=== PATIENT | female | born 1960 | race Caucasian/White ===

== ENCOUNTER → 2018-05-20 | Outpatient (CLI) | payer BC ==
--- NOTE | 2018-05-21 14:47 | MM ---
Reason for exam: additional evaluation requested from prior study. Last mammogram was performed 1 year and 1 month ago. History: Patient is postmenopausal. Family history of breast cancer in sister at age 40 and breast cancer in paternal aunt. Benign excisional biopsy of the right breast, 1989. Physical Findings: Nurse did not find any significant physical abnormalities on exam. MG 3D Diag Mammo W/Cad OSKAR Bilateral CC and MLO view(s) were taken. Prior study comparison: April 10, 2017, mammogram. March 29, 2016, mammogram. March 23, 2015, mammogram. The breast tissue is heterogeneously dense. This may lower the sensitivity of mammography. Regional punctate calcifications right breast. No significant new findings when compared with previous films. These results were verbally communicated with the patient and result sheet given to the patient on 05/20/18. ASSESSMENT: Incomplete: need additional imaging evaluation, BI-RAD 0 RECOMMENDATION: Ultrasound of the left breast.
--- NOTE | 2018-05-21 14:49 | USB ---
Reason for exam: additional evaluation requested from abnormal screening. History: Patient is postmenopausal. Family history of breast cancer in sister at age 40 and breast cancer in paternal aunt. Benign excisional biopsy of the right breast, 1989. US Breast LT Left complete breast ultrasound includes all four quadrants, the retroareolar region and axilla. Finding demonstrates a 0.9 x 0.3 x 0.9cm oval, cystic cluster at 3 o'clock, unchanged from previous. This is unchanged from 01/31/17. Compatible with a benign etiology. Patient's annual exam can be done in a diagnostic clinic. These results were verbally communicated with the patient and result sheet given to the patient on 05/20/18. ASSESSMENT: Probably benign, BI-RAD 3 RECOMMENDATION: Follow-up diagnostic mammogram of both breasts in 1 year.
== END | disposition home or self-care (01) ==
LOC: RADMAMWWP 09:11
PROVIDERS: ATTEND Family Medicine
DX: N63.20 Unspecified lump in the left breast, unspecified quadrant (principal); R92.8 Other abnormal and inconclusive findings on diagnostic imaging of breast
CPT/HCPCS: 77062; 77066

== ENCOUNTER → 2023-11-28 | Outpatient (CLI) | payer BC ==
[2023-11-28 13:34] VITALS: BP 108/71; PULSE 112; RESP 16; TEMP 98.1
--- NOTE | 2023-11-28 13:52 | P.GSHP ---
History of Present Illness H&P Date: 11/28/23 Chief Complaint: breast pain Maribeth is a 63 year old female seen in consultation for Jeannine Small regarding breast pain. She had a bilateral mammogram on 08-14-23 which was read as BIRAD 2. She had a bilateral breast ultrasound on the same date which showed a probably benign heterogenous lesion which was hypoechoic at the 3 OClock position of the left breast for which 6 month follow up was recommended. In September her left nipple was itching, it was also tender. She had a follow up mammogram and ultrasound Nov 07, 2023. This revealed a stable complicated cyst at 3:00 left breast no significant interval change, and a stable mammogram. This was felt to be probably benign and short interval follow-up in 6 months was recommended of the ultrasound for stability of the left breast cyst. The breast pain has resolved. The pain was in the lateral aspect of her breast. It does not spread any place. She has no nipple discharge. She is not complaining of any lumps. masses, or nodules. She has no recent trauma of infection in her breast. 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 She had a left breast biopsy many years ago. Caffeine: none nicotine: none chocolate: weekly BCP: none hormones: none Family History: sister: breast cancer, at 40 genetic test (-) was taking hormones to get paternal aunt: breast cancer mother: lung cancer, skin cancer not melanoma father: lung cancer paternal 1st cousin: breast cancer Hormonal History: menarche: 13 breast fed: yes, first born at 25 menopause: 56 Surgical History: appy right knee left hip; cord decompression scheduled for hip replacement next week on the left skin cancer on her nose Medical History: high cholesterol arthritis Social History: nicotine: none alcohol: none drugs: none - Constitutional Constitutional: Denies chills, Denies fever - EENT Eyes: denies blurred vision, denies pain Ears: deny: decreased hearing, tinnitus Ears, nose, mouth and throat: Denies headache, Denies sore throat - Breasts Breasts: bilateral: as per HPI - Cardiovascular Cardiovascular: Denies chest pain, Denies shortness of breath - Respiratory Respiratory: Denies cough, Denies 7 - Gastrointestinal Gastrointestinal: Denies abdominal pain, Denies diarrhea, Denies nausea, Denies vomiting - Genitourinary (Female) Genitourinary: Denies dysuria, Denies hematuria - Menstruation Menstruation: Reports postmenopausal - Musculoskeletal Musculoskeletal: Reports as per HPI - Integumentary Comment: rosacea Integumentary: Reports as per HPI, Denies pruritus, Denies rash - Neurological Neurological: Denies numbness, Denies weakness - Psychiatric Psychiatric: Reports anxiety - Endocrine Endocrine: Denies fatigue, Denies weight change - Hematologic/Lymphatic Comment: none - Allergic/Immunologic Allergic/Immunologic: Reports as per HPI, Reports seasonal allergies Past Medical History Past Medical History: Hyperlipidemia Additional Past Medical History / Comment(s): Rosacea, Skin Cancer History of Any Multi-Drug Resistant Organisms: None Reported Past Surgical History: Appendectomy, Joint Replacement Additional Past Surgical History / Comment(s): Left hip core decompression, Breast Biopsy (right) Past Psychological History: No Psychological Hx Reported Smoking Status: Never smoker Medications and Allergies Home Medications Medication Instructions Recorded Confirmed Type Ascorbic Acid [Vitamin C] 500 mg PO DAILY 11/28/23 11/28/23 History Calcium Carbonate/Vitamin D3 1 each PO 11/28/23 History [Calcium 600 mg-D3 20 mcg (800 unit)] Cholecalciferol (Vitamin D3) 50 mcg PO 11/28/23 History [Vitamin D3 (50 Mcg = 2000 Iu)] Fish Oil/Dha/Epa [Fish Oil 1,200 1 each PO 11/28/23 History mg Fish Oil] Ibuprofen [Motrin Ib] 200 mg PO 11/28/23 History Multivit-Min/Iron/Folic/Lutein 1 each PO 11/28/23 History [Centrum Silver Women Tablet] Simvastatin 10 mg PO 11/28/23 History metroNIDAZOLE [Metrolotion] 1 applic TOPICAL 11/28/23 History Allergies Allergy/AdvReac Type Severity Reaction Status Date / Time bacitracin Allergy Rash/Hives Unverified 11/28/23 13:10 [From Triple Antibiotic] neomycin Allergy Rash/Hives Unverified 11/28/23 13:10 [From Triple Antibiotic] polymyxin B Allergy Rash/Hives Unverified 11/28/23 13:10 [From Triple Antibiotic] duloxetine [From Cymbalta] AdvReac Unknown Unverified 11/28/23 13:11 Surgical - Exam Vital Signs Temp Pulse Resp BP Pulse Ox 98.1 F 112 H 16 108/71 99 11/28/23 13:15 11/28/23 13:15 11/28/23 13:15 11/28/23 13:15 11/28/23 13:15 - General no distress - Eyes normal ocular movement - Neck trachea midline - Respiratory normal respiratory effort, clear to auscultation - Cardiovascular Heart Sounds: normal: S1, S2 - Abdomen Abdomen: soft, non tender, no guarding, no rigid, no rebound - Integumentary normal turgor - Neurologic no disoriented, no combative - Musculoskeletal normal gait, normal posture - Psychiatric oriented to time, oriented to person, oriented to place, speech is normal, memory intact Breast Exam: BRA: 36B Inspection: Bilateral grade 2 ptosis Palpation: Right breast: Well-healed scar from prior biopsy, Multi positional exam no dominant masses or nodules of concern, tissue is dense Right axilla: No adenopathy of concern Left breast: Multi positional exam dense breast tissue, fibrocystic changes, no dominant masses or nodules of concern Left axilla: No adenopathy of concern Results Mammogram and ultrasound results reviewed from July 2023 as well as repeat left breast mammogram and ultrasound from October 2023 Assessment and Plan Assessment: Impression: Fibrocystic breast changes Dense breast tissue Strong family history of cancer/sister had genetic testing which was negative Abnormal left breast ultrasound Plan: Bilateral mammogram and left breast ultrasound in 6 months with physician exam at that time At this time there is nothing on physical examination or radiographically which would warrant interventional biopsy We have talked about lifestyle modification however the patient does not smoke, she does not drink caffeine, and eats little chocolate. We have also talked about primrose oil The patient will consider this Patient to call sooner if any questions or concerns otherwise I will see her in 6 months after her repeat left breast ultrasound and bilateral mammogram CC: Jeannine Small
== END ==
LOC: WWCWWP 12:38
PROVIDERS: ATTEND Surgery
DX: N60.12 Diffuse cystic mastopathy of left breast (principal); R92.30 Dense breasts, unspecified; E78.00 Pure hypercholesterolemia, unspecified; M19.90 Unspecified osteoarthritis, unspecified site; Z80.3 Family history of malignant neoplasm of breast; Z85.828 Personal history of other malignant neoplasm of skin; Z88.8 Allergy status to other drugs, medicaments and biological substances; Z88.1 Allergy status to other antibiotic agents

== ENCOUNTER → 2024-05-14 | Outpatient (CLI) | payer BC ==
--- NOTE | 2024-05-14 09:46 | USB ---
Reason for Exam: Follow-up at short interval from prior study. Patient History: Menarche at age 13. First Full-Term at age 25. Postmenopausal. 1989, Benign Excisional Biopsy on the right side. Paternal aunt had breast cancer. Sister had breast cancer, age 40. Risk Values: Seema 5 year model risk: 3.8%. NCI Lifetime model risk: 16.3%. Technique: Method: Targeted. Prior Study Comparison: 03/29/2016 Screening Mammogram, Unknown. 04/10/2017 Screening Mammogram, Unknown. 05/20/2018 Bilateral Diagnostic Mammogram, [facility]. Findings: The upper outer quadrant of the left breast, the axilla of the left breast and the retroareolar of the left breast were scanned. Probable lobe noted at the left 3:00 position 4 cm from the nipple essentially unchanged dating back to 2017. Current measurement is 0.9 x 0.8 x 0.3 cm versus 0.9 x 0.9 x 0.3 cm previously. No new masses seen. Overall Assessment: Benign, BI-RAD 2 Management: Screening Mammogram of both breasts in 6 months. A clinical breast exam by your physician is recommended on an annual basis and results should be correlated with mammographic findings. This exam should not preclude additional follow-up of suspicious palpable abnormalities. Results were given to the patient verbally at the time of exam. Electronically signed and approved by: Rajiv Navarrete M.D. Radiologis
--- NOTE | 2024-05-14 10:36 | P.PN ---
Subjective Progress Note Date: 05/14/24 Principal diagnosis: new discussion of high risk breast cancer 05-14-24 Maribeth is a 63 year old female seen in consultation on 11-28-23 for Jeannine Small regarding breast pain. She had a bilateral mammogram on 08-14-23 which was read as BIRAD 2. She had a bilateral breast ultrasound on the same date which showed a probably benign heterogenous lesion which was hypoechoic at the 3 OClock position of the left breast for which 6 month follow up was recommended. In September her left nipple was itching, it was also tender. She had a follow up mammogram and ultrasound Nov 07, 2023. This revealed a stable complicated cyst at 3:00 left breast no significant interval change, and a stable mammogram. This was felt to be probably benign and short interval follow-up in 6 months was recommended of the ultrasound for stability of the left breast cyst. The breast pain has resolved. The pain was in the lateral aspect of her breast. It does not spread any place. She has no nipple discharge. She is not complaining of any lumps. masses, or nodules. She has no recent trauma of infection in her breast. 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 She had a left breast biopsy many years ago. The patient is not complaining of any new lumps masses or nodules of concern in either breast. She is not complaining of any breast pain. She bought new bras, and helped resolve the pain. She did not try primrose oil. last bilateral mammogram 08-14-23: BIRAD 2 ultrasound of the left breast done on and personally discussed and reviewed with DR. Ryder form radiology, BIRAD 2 stable cystic lesion Seema Risk: 5 year: 3.8% NCI lifetime risk: 16.3% We have had a discussion regarding chemoprophylaxis, at this time the patient would prefer to be followed conservatively. Caffeine: none nicotine: none chocolate: weekly BCP: none hormones: none Family History: sister: breast cancer, at 40 genetic test (-) was taking hormones to get paternal aunt: breast cancer mother: lung cancer, skin cancer not melanoma father: lung cancer paternal 1st cousin: breast cancer Hormonal History: menarche: 13 breast fed: yes, first born at 25 menopause: 56 Surgical History: appy right knee left hip; cord decompression scheduled for hip replacement next week on the left skin cancer on her nose Medical History: high cholesterol arthritis Social History: nicotine: none alcohol: none drugs: none - Constitutional Constitutional: Denies chills, Denies fever - EENT Eyes: denies blurred vision, denies pain Ears: deny: decreased hearing, tinnitus Ears, nose, mouth and throat: Denies headache, Denies sore throat - Breasts Breasts: bilateral: as per HPI - Cardiovascular Cardiovascular: Denies chest pain, Denies shortness of breath - Respiratory Respiratory: Denies cough - Gastrointestinal Gastrointestinal: Denies abdominal pain, Denies diarrhea, Denies nausea, Denies vomiting - Genitourinary (Female) Genitourinary: Denies dysuria, Denies hematuria - Menstruation Menstruation: Reports postmenopausal - Musculoskeletal Musculoskeletal: Reports as per HPI - Integumentary Comment: rosacea Integumentary: Reports as per HPI, Denies pruritus, Denies rash - Neurological Neurological: Denies numbness, Denies weakness - Psychiatric Psychiatric: Reports anxiety - Endocrine Endocrine: Denies fatigue, Denies weight change - Hematologic/Lymphatic Comment: none - Allergic/Immunologic Allergic/Immunologic: Reports as per HPI, Reports seasonal allergies Past Medical History Past Medical History: Hyperlipidemia Additional Past Medical History / Comment(s): Rosacea, Skin Cancer History of Any Multi-Drug Resistant Organisms: None Reported Past Surgical History: Appendectomy, Joint Replacement Additional Past Surgical History / Comment(s): Left hip core decompression, Breast Biopsy (right) Past Psychological History: No Psychological Hx Reported Smoking Status: Never smoker Medications and Allergies Home Medications Medication Instructions Recorded Confirmed Type Ascorbic Acid [Vitamin C] 500 mg PO DAILY 11/28/23 11/28/23 History Calcium Carbonate/Vitamin D3 1 each PO 11/28/23 History [Calcium 600 mg-D3 20 mcg (800 unit)] Cholecalciferol (Vitamin D3) 50 mcg PO 11/28/23 History [Vitamin D3 (50 Mcg = 2000 Iu)] Fish Oil/Dha/Epa [Fish Oil 1,200 1 each PO 11/28/23 History mg Fish Oil] Ibuprofen [Motrin Ib] 200 mg PO 11/28/23 History Multivit-Min/Iron/Folic/Lutein 1 each PO 11/28/23 History [Centrum Silver Women Tablet] Simvastatin 10 mg PO 11/28/23 History metroNIDAZOLE [Metrolotion] 1 applic TOPICAL 11/28/23 History Allergies Allergy/AdvReac Type Severity Reaction Status Date / Time bacitracin Allergy Rash/Hives Unverified 11/28/23 13:10 [From Triple Antibiotic] neomycin Allergy Rash/Hives Unverified 11/28/23 13:10 [From Triple Antibiotic] polymyxin B Allergy Rash/Hives Unverified 11/28/23 13:10 [From Triple Antibiotic] duloxetine [From Cymbalta] AdvReac Unknown Unverified 11/28/23 13:11 Objective - Constitutional General appearance: Present: cooperative - EENT Eyes: Present: EOMI ENT: Present: hearing grossly normal - Neck Neck: Present: normal ROM - Respiratory Respiratory: bilateral: CTA - Cardiovascular Heart sounds: normal: S1, S2 - Integumentary Integumentary: Present: normal turgor - Musculoskeletal Musculoskeletal: Present: gait normal - Psychiatric Psychiatric: Present: A&O x's 3, appropriate affect, intact judgment & insight - Additional findings Additional findings: Breast Exam: BRA: 36B Inspection: Bilateral grade 2 ptosis Palpation: Right breast: Well-healed scar from prior biopsy, Multi positional exam no dominant masses or nodules of concern, tissue is dense Right axilla: No adenopathy of concern Left breast: Multi positional exam dense breast tissue, fibrocystic changes, no dominant masses or nodules of concern Left axilla: No adenopathy of concern Assessment and Plan Assessment: Impression: Fibrocystic breast changes Dense breast tissue Strong family history of cancer/sister had genetic testing which was negative Abnormal left breast ultrasound repeated on 05-14-24 BIRAD 2 stable personally reviewed and discussed with Dr. Ryder Plan: Bilateral mammogram in July with examination at that time At this time there is nothing on physical examination or radiographically which would warrant interventional biopsy We have talked about lifestyle modification however the patient does not smoke, she does not drink caffeine, and eats little chocolate. We have also talked about primrose oil Patient to call sooner if any questions or concerns otherwise I will see her in 6 months after her repeat left breast ultrasound and bilateral mammogram Will follow conservatively rather than undergo chemoprophylaxis at this time CC: Jeannine Small CC: Dio Alcantara
== END | disposition home or self-care (01) ==
LOC: RADUSWWP 09:21
PROVIDERS: ATTEND Surgery
DX: N64.4 Mastodynia (principal); N60.02 Solitary cyst of left breast; E78.00 Pure hypercholesterolemia, unspecified; Z78.0 Asymptomatic menopausal state; Z80.3 Family history of malignant neoplasm of breast

== ENCOUNTER → 2024-05-14 | Outpatient (CLI) | payer BC ==
[2024-05-14 10:02] VITALS: BP 125/79; PULSE 79; RESP 16; TEMP 98.5
== END ==
LOC: WWCWWP 09:22
PROVIDERS: ATTEND Surgery
DX: Z53.9 Procedure and treatment not carried out, unspecified reason (principal)

== ENCOUNTER → 2024-11-06 | Outpatient (CLI) | payer BC ==
[2024-11-06 13:11] VITALS: BP 115/77; PULSE 97; RESP 17; TEMP 97.2
--- NOTE | 2024-11-06 13:48 | P.PN ---
Subjective Progress Note Date: 11/06/24 05/14/24 Principal diagnosis: new discussion of high risk breast cancer 11-06-24 Maribeth is a 64 year old female seen in consultation on 11-28-23 for Jeannine Small regarding breast pain. She had a bilateral mammogram on 08-14-23 which was read as BIRAD 2. She had a bilateral breast ultrasound on the same date which showed a probably benign heterogenous lesion which was hypoechoic at the 3 OClock position of the left breast for which 6 month follow up was recommended. In September her left nipple was itching, it was also tender. She had a follow up mammogram and ultrasound Nov 07, 2023. This revealed a stable complicated cyst at 3:00 left breast no significant interval change, and a stable mammogram. This was felt to be probably benign and short interval follow-up in 6 months was recommended of the ultrasound for stability of the left breast cyst. The breast pain has resolved. The pain was in the lateral aspect of her breast. It does not spread any place. She has no nipple discharge. She is not complaining of any lumps. masses, or nodules. She has no recent trauma of infection in her breast. 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 She had a left breast biopsy many years ago. The patient is not complaining of any new lumps masses or nodules of concern in either breast. She is not complaining of any breast pain. She bought new bras, and helped resolve the pain. She did not try primrose oil. last bilateral mammogram 08-14-23: BIRAD 2 ultrasound of the left breast done on and personally discussed and reviewed with DR. Ryder form radiology, BIRAD 2 stable cystic lesion Bilateral mammogram and ultrasound on 08-27-24 at [facility], BIRAD 2 stable nodule in the left breast Seema Risk: 5 year: 3.8% NCI lifetime risk: 16.3% We have had a discussion regarding chemoprophylaxis, at this time the patient would prefer to be followed conservatively. She is not complaining of any new lumps masses or nodules of concern in either breast. No nipple discharge or skin changes. Caffeine: none nicotine: none chocolate: weekly BCP: none hormones: none Family History: sister: breast cancer, at 40 genetic test (-) was taking hormones to get paternal aunt: breast cancer mother: lung cancer, skin cancer not melanoma father: lung cancer paternal 1st cousin: breast cancer Hormonal History: menarche: 13 breast fed: yes, first born at 25 menopause: 56 Surgical History: appy right knee left hip; cord decompression scheduled for hip replacement next week on the left skin cancer on her nose left knee replacement Medical History: high cholesterol arthritis Social History: nicotine: none alcohol: none drugs: none - Constitutional Constitutional: Denies chills, Denies fever - EENT Eyes: denies blurred vision, denies pain Ears: deny: decreased hearing, tinnitus Ears, nose, mouth and throat: Denies headache, Denies sore throat - Breasts Breasts: bilateral: as per HPI - Cardiovascular Cardiovascular: Denies chest pain, Denies shortness of breath - Respiratory Respiratory: Denies cough - Gastrointestinal Gastrointestinal: Denies abdominal pain, Denies diarrhea, Denies nausea, Denies vomiting - Genitourinary (Female) Genitourinary: Denies dysuria, Denies hematuria - Menstruation Menstruation: Reports postmenopausal - Musculoskeletal Musculoskeletal: Reports as per HPI - Integumentary Comment: rosacea Integumentary: Reports as per HPI, Denies pruritus, Denies rash - Neurological Neurological: Denies numbness, Denies weakness - Psychiatric Psychiatric: Reports anxiety - Endocrine Endocrine: Denies fatigue, Denies weight change - Hematologic/Lymphatic Comment: none - Allergic/Immunologic Allergic/Immunologic: Reports as per HPI, Reports seasonal allergies Past Medical History Past Medical History: Hyperlipidemia Additional Past Medical History / Comment(s): Rosacea, Skin Cancer History of Any Multi-Drug Resistant Organisms: None Reported Past Surgical History: Appendectomy, Joint Replacement Additional Past Surgical History / Comment(s): Left hip core decompression, Breast Biopsy (right) Past Psychological History: No Psychological Hx Reported Smoking Status: Never smoker Medications and Allergies Home Medications Medication Instructions Recorded Confirmed Type Ascorbic Acid [Vitamin C] 500 mg PO DAILY 11/28/23 11/28/23 History Calcium Carbonate/Vitamin D3 1 each PO 11/28/23 History [Calcium 600 mg-D3 20 mcg (800 unit)] Cholecalciferol (Vitamin D3) 50 mcg PO 11/28/23 History [Vitamin D3 (50 Mcg = 2000 Iu)] Fish Oil/Dha/Epa [Fish Oil 1,200 1 each PO 11/28/23 History mg Fish Oil] Ibuprofen [Motrin Ib] 200 mg PO 11/28/23 History Multivit-Min/Iron/Folic/Lutein 1 each PO 11/28/23 History [Centrum Silver Women Tablet] Simvastatin 10 mg PO 11/28/23 History metroNIDAZOLE [Metrolotion] 1 applic TOPICAL 11/28/23 History Allergies Allergy/AdvReac Type Severity Reaction Status Date / Time bacitracin Allergy Rash/Hives Unverified 11/28/23 13:10 [From Triple Antibiotic] neomycin Allergy Rash/Hives Unverified 11/28/23 13:10 [From Triple Antibiotic] polymyxin B Allergy Rash/Hives Unverified 11/28/23 13:10 [From Triple Antibiotic] duloxetine [From Cymbalta] AdvReac Unknown Unverified 11/28/23 13:11 Objective - Vital Signs Vital signs: Vital Signs Temp 97.2 F L 11/06/24 13:09 Pulse 97 11/06/24 13:09 Resp 17 11/06/24 13:09 BP 115/77 11/06/24 13:09 Pulse Ox 98 11/06/24 13:09 FiO2 Intake & Output 11/05/24 11/06/24 11/06/24 18:59 06:59 18:59 Weight 73.482 kg - Constitutional General appearance: Present: cooperative - EENT Eyes: Present: EOMI ENT: Present: hearing grossly normal - Neck Neck: Present: normal ROM - Respiratory Respiratory: bilateral: CTA - Cardiovascular Rhythm: regular Heart sounds: normal: S1, S2 - Integumentary Integumentary: Present: normal turgor - Musculoskeletal Musculoskeletal: Present: gait normal - Psychiatric Psychiatric: Present: A&O x's 3, appropriate affect, intact judgment & insight - Additional findings Additional findings: Breast Exam: BRA: 36B Inspection: Bilateral grade 2 ptosis Palpation: Right breast: Well-healed scar from prior biopsy, Multi positional exam no dominant masses or nodules of concern, tissue is dense Right axilla: No adenopathy of concern Left breast: Multi positional exam dense breast tissue, fibrocystic changes, no dominant masses or nodules of concern Left axilla: No adenopathy of concern Assessment and Plan Assessment: Impression: Fibrocystic breast changes Dense breast tissue Strong family history of cancer/sister had genetic testing which was negative Abnormal left breast ultrasound repeated on 05-14-24 BIRAD 2 stable personally reviewed and discussed with Dr. Ryder Bilateral mammogram and ultrasound on 08-27-24 at [facility], BIRAD 2 stable nodule in the left breast Plan: Bilateral mammogram and ultrasound in August 2025 with examination At this time there is nothing on physical examination or radiographically which would warrant interventional biopsy We have talked about lifestyle modification however the patient does not smoke, she does not drink caffeine, and eats little chocolate. We have also talked about primrose oil Patient to call sooner if any questions or concerns otherwise I will see her in August for her exam after bilateral mammogram and ultrasound Will follow conservatively rather than undergo chemoprophylaxis at this time CC: Jeannine Small CC: Dio Alcantara
== END ==
LOC: WWCWWP 12:47
PROVIDERS: ATTEND Surgery
DX: N63.20 Unspecified lump in the left breast, unspecified quadrant (principal); N60.12 Diffuse cystic mastopathy of left breast; R92.8 Other abnormal and inconclusive findings on diagnostic imaging of breast; Z88.8 Allergy status to other drugs, medicaments and biological substances

== ENCOUNTER → 2025-03-05 | Outpatient (CLI) | payer BC ==
--- NOTE | 2025-03-05 12:45 | USB ---
Reason for Exam: Clinical finding. Patient History: Menarche at age 13. First Full-Term at age 25. Postmenopausal. 1989, Benign Excisional Biopsy on the right side. Paternal aunt had breast cancer. Sister had breast cancer, age 40. Risk Values: Seema 5 year model risk: 3.8%. NCI Lifetime model risk: 16.3%. Technique: Method: Whole Breast Handheld. Prior Study Comparison: 03/29/2016 Screening Mammogram, Unknown. 04/10/2017 Screening Mammogram, Unknown. 05/20/2018 Bilateral Diagnostic Mammogram, [facility]. Findings: The whole breast of the left breast, the axilla of the left breast and the retroareolar of the left breast were scanned. A complete US of all four quadrants of the breast , subareolar, and axillary region were reviewed. Focal asymmetric prominent tissue at 3:00 position 4 cm identified measuring around 7 mm. This was present on prior. Overall Assessment: Benign, BI-RAD 2 Management: Screening Mammogram of both breasts in 6 months. Back on annual schedule. A clinical breast exam by your physician is recommended on an annual basis and results should be correlated with mammographic findings. This exam should not preclude additional follow-up of suspicious palpable abnormalities. Results were given to the patient verbally at the time of exam. [facility], , 03/05/2025 12:40 PM. Electronically signed and approved by: Andrew Esposito M.D.
== END | disposition home or self-care (01) ==
LOC: RADUSWWP 12:10
PROVIDERS: ATTEND Surgery
DX: N64.4 Mastodynia (principal); Z78.0 Asymptomatic menopausal state; Z80.3 Family history of malignant neoplasm of breast

== ENCOUNTER → 2025-03-05 | Outpatient (CLI) | payer BC ==
[2025-03-05 09:56] VITALS: BP 139/83; PULSE 81; RESP 17; TEMP 97.5
--- NOTE | 2025-03-05 11:11 | P.PN ---
Subjective Progress Note Date: 03/05/25 Principal diagnosis: breast pain 12-06-24 high risk breast cancer/surveillance Maribeth is a 64 year old female seen in consultation on 11-28-23 for Jeannine Small regarding breast pain. She had a bilateral mammogram on 08-14-23 which was read as BIRAD 2. She had a bilateral breast ultrasound on the same date which showed a probably benign heterogeneous lesion which was hypoechoic at the 3 OClock position of the left breast for which 6 month follow up was recommended. In September her left nipple was itching, it was also tender. She had a follow up mammogram and ultrasound Nov 07, 2023. This revealed a stable complicated cyst at 3:00 left breast no significant interval change, and a stable mammogram. This was felt to be probably benign and short interval follow-up in 6 months was recommended of the ultrasound for stability of the left breast cyst. The breast pain has resolved. The pain was in the lateral aspect of her breast. It does not spread any place. She has no nipple discharge. She is not complaining of any lumps. masses, or nodules. She has no recent trauma of infection in her breast. 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 She had a left breast biopsy many years ago. The patient is not complaining of any new lumps masses or nodules of concern in either breast. She is not complaining of any breast pain. She bought new bras, and helped resolve the pain. She did not try primrose oil. last bilateral mammogram 08-14-23: BIRAD 2 ultrasound of the left breast done on 05-14-24 and personally discussed and reviewed with DR. Ryder from radiology, BIRAD 2 stable cystic lesion Bilateral mammogram and ultrasound on 08-27-24 at [facility], BIRAD 2 stable nodule in the left breast She started melixocam in December; for left knee replacement she was also doing exercises in December and had some chest wall pain with radiation to her breast We have had a discussion regarding chemoprophylaxis, at this time the patient would prefer to be followed conservatively. She is not complaining of any new lumps masses or nodules of concern in either breast No nipple discharge or skin changes Patient states in mid December 2024 she had left breast pain, and now improved this was following an exercise class where she did chest wall exercises Seema Risk: 5 year: 3.8% NCI lifetime risk: 16.3% Caffeine: none nicotine: none chocolate: weekly BCP: none hormones: none Family History: sister: breast cancer, at 40 genetic test (-) was taking hormones to get paternal aunt: breast cancer mother: lung cancer, skin cancer not melanoma father: lung cancer paternal 1st cousin: breast cancer Hormonal History: menarche: 13 breast fed: yes, first born at 25 menopause: 56 Surgical History: appy right knee left hip; cord decompression scheduled for hip replacement next week on the left skin cancer on her nose left knee replacement Medical History: high cholesterol arthritis Social History: nicotine: none alcohol: none drugs: none - Constitutional Constitutional: Denies chills, Denies fever - EENT Eyes: denies blurred vision, denies pain Ears: deny: decreased hearing, tinnitus Ears, nose, mouth and throat: Denies headache, Denies sore throat - Breasts Breasts: bilateral: as per HPI - Cardiovascular Cardiovascular: Denies chest pain, Denies shortness of breath - Respiratory Respiratory: Denies cough - Gastrointestinal Gastrointestinal: Denies abdominal pain, Denies diarrhea, Denies nausea, Denies vomiting - Genitourinary (Female) Genitourinary: Denies dysuria, Denies hematuria - Menstruation Menstruation: Reports postmenopausal - Musculoskeletal Musculoskeletal: Reports as per HPI - Integumentary Comment: rosacea Integumentary: Reports as per HPI, Denies pruritus, Denies rash - Neurological Neurological: Denies numbness, Denies weakness - Psychiatric Psychiatric: Reports anxiety - Endocrine Endocrine: Denies fatigue, Denies weight change - Hematologic/Lymphatic Comment: none - Allergic/Immunologic Allergic/Immunologic: Reports as per HPI, Reports seasonal allergies Past Medical History Past Medical History: Hyperlipidemia Additional Past Medical History / Comment(s): Rosacea, Skin Cancer History of Any Multi-Drug Resistant Organisms: None Reported Past Surgical History: Appendectomy, Joint Replacement Additional Past Surgical History / Comment(s): Left hip core decompression, Breast Biopsy (right) Past Psychological History: No Psychological Hx Reported Smoking Status: Never smoker Medications and Allergies Home Medications Medication Instructions Recorded Confirmed Type Ascorbic Acid [Vitamin C] 500 mg PO DAILY 11/28/23 11/28/23 History Calcium Carbonate/Vitamin D3 1 each PO 11/28/23 History [Calcium 600 mg-D3 20 mcg (800 unit)] Cholecalciferol (Vitamin D3) 50 mcg PO 11/28/23 History [Vitamin D3 (50 Mcg = 2000 Iu)] Fish Oil/Dha/Epa [Fish Oil 1,200 1 each PO 11/28/23 History mg Fish Oil] Ibuprofen [Motrin Ib] 200 mg PO 11/28/23 History Multivit-Min/Iron/Folic/Lutein 1 each PO 11/28/23 History [Centrum Silver Women Tablet] Simvastatin 10 mg PO 11/28/23 History metroNIDAZOLE [Metrolotion] 1 applic TOPICAL 11/28/23 History Allergies Allergy/AdvReac Type Severity Reaction Status Date / Time bacitracin Allergy Rash/Hives Unverified 11/28/23 13:10 [From Triple Antibiotic] neomycin Allergy Rash/Hives Unverified 11/28/23 13:10 [From Triple Antibiotic] polymyxin B Allergy Rash/Hives Unverified 11/28/23 13:10 [From Triple Antibiotic] duloxetine [From Cymbalta] AdvReac Unknown Unverified 11/28/23 13:11 Objective - Vital Signs Vital signs: Vital Signs Temp 97.5 F L 03/05/25 09:53 Pulse 81 03/05/25 09:53 Resp 17 03/05/25 09:53 BP 139/83 03/05/25 09:53 Pulse Ox 99 03/05/25 09:53 FiO2 Intake & Output 03/04/25 03/05/25 03/05/25 18:59 06:59 18:59 Weight 70.307 kg - Constitutional General appearance: Present: cooperative - EENT Eyes: Present: EOMI ENT: Present: hearing grossly normal - Neck Neck: Present: normal ROM - Respiratory Respiratory: bilateral: CTA - Cardiovascular Rhythm: regular Heart sounds: normal: S1, S2 - Integumentary Integumentary: Present: normal turgor - Musculoskeletal Musculoskeletal: Present: gait normal - Psychiatric Psychiatric: Present: A&O x's 3, appropriate affect, intact judgment & insight - Additional findings Additional findings: Breast Exam: BRA: 36B Inspection: Bilateral grade 2 ptosis Palpation: Right breast: Well-healed scar from prior biopsy, Multi positional exam no dominant masses or nodules of concern, tissue is dense Right axilla: No adenopathy of concern Left breast: Multi positional exam dense breast tissue, fibrocystic changes, no dominant masses or nodules of concern Left axilla: No adenopathy of concern Assessment and Plan Assessment: Impression: left breast pain left knee pain and swelling on melixicam Plan: ultrasound of hte left breast and follow up after Bilateral mammogram and ultrasound in August 2025 with examination At this time there is nothing on physical examination or radiographically which would warrant interventional biopsy We have talked about lifestyle modification however the patient does not smoke, she does not drink caffeine, and eats little chocolate. We have also talked about primrose oil CC: Dio Alcantara
== END ==
LOC: WWCWWP 09:27
PROVIDERS: ATTEND Surgery
DX: N64.4 Mastodynia (principal); M25.462 Effusion, left knee; Z88.1 Allergy status to other antibiotic agents; Z88.8 Allergy status to other drugs, medicaments and biological substances